=== PATIENT | male | born 1990 | race Two or more races ===

== ENCOUNTER 2019-03-07 17:11 | Emergency (ER) | payer OTHER ==
[~2019-03-07] VITALS: Ht 182.9 cm; Wt 74.0 kg
[2019-03-07 17:14] VITALS: BP 149/97
[2019-03-07] MEDS ORDERED: HYDROcodone/APAP 5/325 TABLET ONE (18:46)
[2019-03-07] MEDS ORDERED: HYDROcodone/APAP 5/325 TABLET PO ONE (19:00)
== END 2019-03-07 18:54 | disposition home or self-care (01) ==
LOC: ED 18:48
DX: M25.512 Pain in left shoulder (principal)
CPT/HCPCS: 99283

== ENCOUNTER 2019-06-28 17:28 | Emergency (ER) | payer MEDICAID ==
[~2019-06-28] VITALS: Ht 182.9 cm; Wt 78.2 kg
[2019-06-28 17:30] VITALS: BP 148/108
--- NOTE | 2019-06-28 17:49 | NUR ---
PT HERE TODAY FOR LEFT ARM PAIN/WEAKNESS. STATES ARM HAS HAD PAIN FOR 1 YEAR BUT TODAY HIS HAND FEELS WEAK AND THERE IS NUMBNESS IN HIS LEFT PINKY FINGGER. STATES HIS SHOULDER HAS "FALLEN OUT OF SOCKET" TWICE. DIFFICULTY RAISING ARM. RADIAL PULSE PRESENT 2+, STRENGTH 5/5 NO PROBLEM WITH ROM. RESTING ON GURNEY. JULIANO.
== END 2019-06-28 18:47 | disposition home or self-care (01) ==
LOC: ED 18:30
DX: M54.12 Radiculopathy, cervical region (principal); F41.1 Generalized anxiety disorder
CPT/HCPCS: 99283

== ENCOUNTER 2019-07-14 14:56 | Emergency (ER) | payer MEDICAID ==
[~2019-07-14] VITALS: Ht 182.9 cm; Wt 77.0 kg
[2019-07-14 15:41] VITALS: BP 154/99
--- NOTE | 2019-07-14 15:51 | NUR ---
PT AMBULATORY WITH STEADY GAIT FROM LOBBY TO TRIAGE.
--- NOTE | 2019-07-14 15:55 | NUR ---
PT HERE TODAY FOR SHOULDER PAIN THAT HAS BEEN PRESENT FOR A YEAR. FEELS HIS PAIN IS NOT BEING FIXED WHEN HE FOLLOWS UP WITH ORTHO/PRIMARY. SITTING IN CHAIR. PA IN ROOM EXAMINING PT NOW. JULIANO.
[2019-07-14] MEDS ORDERED: HYDROcodone/APAP 5/325 TABLET PO PRN (16:00)
[2019-07-14] MEDS ORDERED: HYDROcodone/APAP 5/325 TABLET ONE (16:15)
== END 2019-07-14 17:14 | disposition home or self-care (01) ==
LOC: ED 17:08
DX: M25.512 Pain in left shoulder (principal)
CPT/HCPCS: 99282